=== PATIENT | female | born 1995 | race Caucasian/White ===

== ENCOUNTER → 2019-05-05 11:43 | Observation (INO) ==
[2019-05-05 11:18] LABS: Bilirubin,Urine Negative (Negative); Blood,Urine Negative (Negative); Clarity,Urine Clear (Clear); Color,Urine Yellow (Yellow); Glucose,Urine (UA) Normal (Normal); Ketones,Urine Negative (Negative); Leukocyte Esterase,Urine Negative (Negative); Nitrite,Urine Negative (Negative); PH,Urine 6.5 pH Units (5.0-8.0); Protein,Urine Negative (Neg-Trace); Urobilinogen,Urine Normal (Normal)
[2019-05-05 11:24] LABS: Amphetamine Screen,Urine Negative ng/mL (Cutoff=1000); Barbiturate Screen,Urine Negative ng/mL (Cutoff=200); Benzodiazepines Screen,Urine Negative ng/mL (Cutoff=200); Cannabinoid Screen,Urine Negative ng/mL (Cutoff = 50); Cocaine Screen,Urine Negative ng/mL (Cutoff= 300); Opiate Screen,Urine Negative ng/mL (Cutoff=300); Phencyclidine Screen,Urine Negative ng/mL (Cutoff=25)
== END | disposition home or self-care (01) ==
LOC: 1NENULAB
PROVIDERS: ADMIT Advanced Practice Midwife; ATTEND Advanced Practice Midwife

== ENCOUNTER → 2019-06-15 16:15 | Observation (INO) ==
[2019-06-15 12:05] LABS: Amphetamine Screen,Urine Negative ng/mL (Cutoff=1000); Barbiturate Screen,Urine Negative ng/mL (Cutoff=200); Benzodiazepines Screen,Urine Negative ng/mL (Cutoff=200); Cannabinoid Screen,Urine Negative ng/mL (Cutoff = 50); Cocaine Screen,Urine Negative ng/mL (Cutoff= 300); Opiate Screen,Urine Negative ng/mL (Cutoff=300); Phencyclidine Screen,Urine Negative ng/mL (Cutoff=25)
[~2019-06-15 16:15] MED LIST: FLU Vac QV 19-20 (6Month+)/PF 0.5 ML SYRINGE IM ONE
--- NOTE | 2019-06-15 21:56 | OB/GYN Progress Note ---
Date of Encounter: 06/15/19 Time of Encounter: 21:55 - Assessment and Plan (1) 38 weeks gestation of Status: Acute (2) Uterine contractions Status: Acute No change on serial cervical exams. Patient given multiple hours of ambulation, peanut ball. No change. Discharged home with labor and when to return to triage precautions. Discussed prodromal labor patterns recommend Tylenol PM rest. Patient verbalizes understanding and in agreement with plan Subjective - Subjective Interval history: 38+6 weeks gestation presents to triage with reports of uterine contraction. Patient reports good movement, denies vaginal bleeding or leaking of fluid. Antepartum ROS: movement normal, contractions, no loss of fluid, no vaginal bleeding Objective - Vital Signs Vital Signs: Intake and Output 06/15/19 06/15/19 06/15/19 07:59 15:59 23:59 Other: Weight 90.1 kg Patient Weight 06/15/19 23:59 Weight 90.1 kg - Exam FHR: auscultation normal Abdomen: Present: soft, gravid Cervical dilation: 1 cm per RN
== END | disposition home or self-care (01) ==
LOC: 1NENULAB
PROVIDERS: ADMIT Advanced Practice Midwife; ATTEND Advanced Practice Midwife

== ENCOUNTER 2019-06-15 22:43 | Inpatient (IN) ==
--- NOTE | 2019-06-15 22:41 | OB/GYN History & Physical ---
Date of Encounter: 06/15/19 Time of Encounter: 22:40 Assessment and Plan (1) 38 weeks gestation of Current visit: No Status: Acute Pt presented earlier today with uterine contraction. 38wks +6 days - had increasing pain since leaving, presented with increasing contractions tonight Cervix 4cm, 100% effacement and 1+ station A+ blood type, HIV nonreactive, rubella immune GBS+ PLAN - admit to L&D - plan for NSV - plan for abx during labor, no penicillin allergy in pmhx - plan for epidural insertion (2) Uterine contractions Current visit: No Status: Acute See above. History of Present Illness Chief complaint: contractions HPI: Ms. Maza is a 24 year old female 38+6 weeks gestation presents to triage with reports of uterine contraction. Was here earlier today for labor evaluation and was sent home bc she was only 1cm dilated this morning. Patient reports good movement, denies vaginal bleeding or leaking of fluid. Came back with increasing contractions and pain. No complications during . GBS+, nonreactive HIV, rubella immune. BT A+. Past Med Surg Social Fam HX - Past Medical History Medical history: no medical history Psychiatric history: anxiety, depression - Past Surgical History Additional surgical history: left wrist ganglion cyst removed x 2. right ear. t&a - Social History Smoking Status: Never smoker Smokeless Tobacco Status: No Alcohol use: none Drug use: none - Family History Mother Adopted: No Family Member Ethnicity: Non- Living Status: Still Living Hx Family Cardiac Disorders: No Hx Family Respiratory Disorders: No Hx Family Cancer: Yes (thyroidectomy) Hx Family GI Disorders: No Hx Family Endocrine Disorder: Yes (pre-diabetic) Hx Family Neuromuscular Disorders: No Hx Family Neurologic Disorders: No Hx Family HEENT Disorders: No Hx Family Autoimmune Disorders: No Obstetrical History - Pregnancies : 2 Para: 0 Term: 0 : 0 Ab's: 0 Livin Medications and Allergies Vitamin Tablet 1 tab PO DAILY 10/22/18 [History] Stool Softener 1 tab PO DAILY 10/22/18 [History] Fiber Gummies 1 tab PO DAILY 01/15/19 [History] Allergy/AdvReac Type Severity Reaction Status Date / Time No Known Allergies Allergy Verified 05/05/19 11:07 Review of System OB - Constitutional Constitutional ROS IM: no chills, no headache(s) - Cardiovascular Cardiovascular: no chest pain - Respiratory Respiratory: no dyspnea - Gastrointestinal Gastrointestinal: abdominal pain - Muscloskeletal Musculoskeletal: arthralgias, back pain - Neurological Nerological: no dizziness - Hematologic/Lymphatic Hematologic/Lymphatic: no easy bleeding Exam - Constitutional Constitutional: well developed, well nourished, mild distress - HEENT HEENT: Mucus Membranes Moist - Lungs Respiratory exam: CTAB - Cardiovascular Cardiovascular exam: RRR - Abdomen Abdomen: Present: gravid - Extremities Extremities exam: normal capillary refill, warm - Cervix Dilation: 4 Effacement: 100 Station: +1 Results All other labs normal. - VTE Reasons for not Prescribing Prophylaxis: Treatment not Indicated - Low risk for VTE
[~2019-06-15 22:43] MED LIST changes: +*HR* Nalbuphine 10 MG/ML AMPUL IVP PRN; -FLU Vac QV 19-20 (6Month+)/PF 0.5 ML SYRINGE IM ONE; +Famotidine 20 MG/2 ML VIAL IVP PRN; +Lidocaine 1% 20 ML MDV INFILT PRN; +Metoclopramide 10 MG/2 ML VIAL IVP PRN; +Naloxone 0.4 MG/ML INJ IVP PRN; +Ondansetron 4 MG/2 ML VIAL IVP PRN; +Penicillin G Potassium 5,000,000 UNIT in 0.9 % Sodium Chloride Mini Bag 100 ML IVPB ONE
[2019-06-15] MEDS ORDERED: Ringers Solution, Lactated 1,000 ML IVC SCH (22:45)
[2019-06-15 23:10] LABS: Basophils # 0.1 K/mcL (0.0-0.2); Basophils % 0.2 %; Hematocrit 41.7 % (35.3-44.9); Hemoglobin 14.3 g/dL (11.5-15.4); Immature Granulocytes % 0.9 % (0-4); Lymphocytes % 4.8 %; Mean Corpuscular HGB Conc 34.3 g/dL (31.6-35.5); Mean Corpuscular Hemoglobin 31.4 pg (28.0-33.3); Mean Corpuscular Volume 91.6 fL (83.0-100.0); Mean Platelet Volume 10.4 fL (9.4-12.4); Monocytes # 0.3 K/mcL (0.0-1.3); Monocytes % 1.2 %; Neutrophils # 19.9 K/mcL (1.6-8.9); Platelet Count 290 K/mcL (140-400); Red Blood Count 4.55 M/mcL (3.82-4.97); Segmented Neutrophils % 92.9 %; White Blood Count 21.5 K/mcL (4.3-11.1)
[2019-06-15] MEDS ORDERED: *HR* FentaNYL (PF) 100 MCG/2 ML VIAL ONE (23:19)
[2019-06-15] MEDS ORDERED: Ropivacaine/PF 0.2% 20 ML VIAL ONE (23:19)
[2019-06-15] MEDS ORDERED: EPHEDrine 50 MG/ML VIAL IVP PRN (23:40)
--- NOTE | 2019-06-15 23:43 | Anesthesia Evaluation PreOp ---
Date of Encounter: 06/15/19 Time of Encounter: 23:15 - Past History Planned Operation: frank Cardiac History: Denies any Significant Hx Pulmonary History: Denies Any Significant HX PRODUCTION STAFF WORKER History: Denies Any Significant HX Other Medical History: Denies Any Significant HX Anesthesia History: No Prior Anesthetic Complications, Past Anesthesia : Yes () Alcohol Use: none Drug use: none Medications and Allergies Vitamin Tablet 1 tab PO DAILY 10/22/18 [History] Stool Softener 1 tab PO DAILY 10/22/18 [History] Fiber Gummies 1 tab PO DAILY 01/15/19 [History] Allergy/AdvReac Type Severity Reaction Status Date / Time No Known Allergies Allergy Verified 06/15/19 22:46 - Meds/Allergy Pre-op Review Medications Reviewed: Yes Allergies Reviewed: Yes Beta Blockers on Current Med List: No Anesthesia Results - Labs 06/15/19 22:50 Anesthesia Exam O2 Sat Height 1.73 m Weight 89.811 kg Height: 68 Weight: 198 - HEENT Pupil (Motor): Pupils equal Mallampati: II Teeth: Normal Oral Opening: Greater than 3 - PRODUCTION STAFF WORKER LOC: Oriented PRODUCTION STAFF WORKER Motor: Normal RUE, Normal LUE, Normal RLE, Normal LLE, Normal Face PRODUCTION STAFF WORKER Sensory: Normal: RUE, LUE, RLE, LLE, Face - Cardiac Rhythm: Regular Murmur: None JVD: No Carotid Bruit: No - Pulmonary Breath Sounds: bilateral Clear Respiratory Effort: Symmetrical Anesthesia Assess/Plan ASA Score: 2 Level of consciousness: Cooperative Anesthetic Plan: Epidural Monitoring Plan: Standard Monitors
[2019-06-15] MEDS ORDERED: Epidural Premix (fent/bupiv) 110 ML EP SCH (23:45)
--- NOTE | 2019-06-15 23:45 | Anesthesia Procedures ---
Date of Encounter: 06/15/19 Time of Encounter: 23:15 (procedure end time 3276) Procedures: Anesthesia - Epidural/Spinal Patient ID/Chart reviewed: Yes Patient examined: Yes OB Eval: Contractions: Non-stressed pattern Consent Obtained: Yes Supplemental Oxygen: None/Room Air Site Prep: Aseptic Technique Patient position: upright Local Anesthetic: Lidocaine 1% Amount of Local Anesthetic used: 3 Touhy Needle Gauge: 18 Touhy Needle Depth (cm): 5 Catheter Depth at Skin (cm): 12 Test Dose (1.5% Lido + Epi): Volume given (mls): 3 Test Dose Result: Negative Loading Dose: Fentanyl (mcg): 100 Loading Dose: Other: 6ml 0.2% ropivicaine Loading Dose Administered: Thru Touhy Needle Infusion Med: 0.125% Bupivacaine w/ 2 mcg/ml Fentanyl Infusion Rate (mls/hr): [address]: Tegaderm Interspace Used: L3-L4 Loss of Resistance (ARLETH): Yes Blood: No CSF: No Paresthesia: No Procedure: Strict asepsis ,one attempt without any redirections. Good ARLETH, no parasthesias, no heme, no CSF. FHR unchanged
[2019-06-15] MEDS ORDERED: Epidural Premix (fent/bupiv) 110 ML EP ONE (23:46)
[2019-06-16] MEDS ORDERED: Penicillin G Potassium 2,500,000 UNIT in 0.9 % Sodium Chloride 100 ML IVPB SCH
--- NOTE | 2019-06-16 00:18 | OB Labor Progress Note ---
Date of Encounter: 06/16/19 Time of Encounter: 00:13 Labor Progress Note - Subjective Subjective: The patient is with some relief after her epidural. She still is feeling some contractions on the left side. She is alert he had her water broke with Dr. Decker, clear fluid and he placed internal's due to concerns about the heart rate tracing. - Vital Signs Vital Signs: Afebrile, vital signs stable - Cervix Cervix: 7-8/100/0, vertex - Heart Tones Heart Tones: 140s baseline currently CAT 1. She has had some variable decelerations intermittently - Montgomery Montgomery: Contractions spontaneous every 2-4 minutes - Interventions Interventions: 39 week IUP with spontaneous labor s/p labor epidural. Positive GBS - Plan Plan: Continue close monitoring. Anticipate vaginal delivery. Continue penicillin for GBS prophylaxis
[2019-06-16] MEDS ORDERED: Lidocaine -MPF 2% 5 ML VIAL ONE (00:53)
[2019-06-16] MEDS ORDERED: Oxytocin 20 units/ LR 1000 mL 20 UNIT/1,000 ML BAG IVC ONE ×2 (02:31→05:54)
--- NOTE | 2019-06-16 04:12 | OB/GYN Procedure Note ---
Delivery - Delivery Date: 06/16/19 Provider: Glo Mart Intrapartum events: none Delivery induction: none Delivery augmentation: rupture of membranes Delivery monitor: external FHT, external uterine, internal FHT, internal uterine Anesthesia: epidural Quantitated Blood Loss: 50 - (s) A Infant Delivery Date: 06/16/19 Delivery Time: 03:39 Presentation: vertex Position: ANGELIKA Route of delivery: Gender: Male Viability: Viable at 1 minute: 8 at 5 mins: 9 Shoulder Dystocia: not encountered Placenta: spontaneous Cord: nuchal cord, 3 umbilical vessels, delivered through nuchal - Repair Episiotomy: none Laceration Description: Periurethral (Bilateral repaired with 4-0 Monocryl), Vaginal (Repaired with 3-0 Monocryl in a running locking fashion approximately 2 cm in length) - Complications Delivery complications: none Delivery comments: The patient was complete and pushing with epidural anesthesia with a spontaneous vaginal delivery in the ANGELIKA position of a vigorous male , weight pending at time of dictation, with Apgars of _8 at 1 minute and _9 at 5 minutes. was placed on the maternal abdomen and care transferred to the nursery care team. The cord was clamped and cut after pulsations ceased. The placenta was delivered spontaneous and intact. Three-vessel cord confirmed. There are bilateral periurethral lacerations which were repaired with 4-0 Monocryl in a running locking fashion. There was a vaginal laceration at 5 o'clock position and a partially 2 cm in length that was repaired with 3-0 Monocryl in a running locking fashion. Estimated blood loss _50_ mL, complications none. Both mother and infant were recovering in stable condition in the LDR - Disposition Mom disposition: stable in LDR disposition: stable in LDR
[2019-06-16] MEDS ORDERED: Lanolin 28 GM TUBE TP PRN (06:54)
[2019-06-16] MEDS ORDERED: Benzocaine/Menthol 56 GM AEROSOL SPRAY TP PRN (06:54)
[2019-06-16] MEDS ORDERED: Oxytocin 20 units/ LR 1000 mL 20 UNIT/1,000 ML BAG IVC SCH (06:54)
[2019-06-16] MEDS ORDERED: Acetaminophen 325 MG TABLET PO PRN (06:54)
[2019-06-16] MEDS: Ibuprofen 600 MG TABLET PO PRN ×3 (08:06→20:53)
[2019-06-16] MEDS ORDERED: Prenatal Vit/FA 1 EACH TABLET PO SCH (09:00)
[2019-06-17] MEDS: Ibuprofen 600 MG TABLET PO PRN (04:26)
[2019-06-17 07:47] VITALS: BP 106/71
--- NOTE | 2019-06-17 09:09 | Discharge Summary ---
Date of Encounter: 06/17/19 Time of Encounter: 09:07 - Discharge Diagnosis (1) Vaginal delivery Priority: Primary Status: Acute Comments: Feeling well Tolerating regular diet Pain well-controlled with by mouth pain meds Ambulating independently Voiding independently Lochia light Passing flatus, no BM yet Vital signs stable Discharge home today (2) Breast feeding status of mother Priority: Secondary Status: Acute Comments: Community resources provided - Discharge Medications Prescriptions: New Acetaminophen [Tylenol] 650 mg PO Q6HR PRN tablet PRN Reason: Mild Pain Ibuprofen [Motrin] 600 mg PO Q6HR PRN #30 tablet PRN Reason: Cramping Benzocaine/Menthol Newman [Dermoplast Newman] 1 appl TP QID PRN aerosol PRN Reason: See Comments Docusate [Colace] 100 mg PO BID #30 capsule Lanolin 1 appl TP Q4HR PRN tube PRN Reason: Continued Stool Softener 1 tab PO DAILY Vitamin Tablet 1 tab PO DAILY Fiber Gummies 1 tab PO DAILY Home Medications: Vitamin Tablet 1 tab PO DAILY 10/22/18 [History] Stool Softener 1 tab PO DAILY 10/22/18 [History] Fiber Gummies 1 tab PO DAILY 01/15/19 [History] Acetaminophen [Tylenol] 650 mg PO Q6HR PRN tablet 06/17/19 [Rx] Benzocaine/Menthol Newman [Dermoplast Newman] 1 appl TP QID PRN aerosol 06/17/19 [Rx] Docusate [Colace] 100 mg PO BID #30 capsule 06/17/19 [Rx] Ibuprofen [Motrin] 600 mg PO Q6HR PRN #30 tablet 06/17/19 [Rx] Lanolin 1 appl TP Q4HR PRN tube 06/17/19 [Rx] Allergies/Adverse Reactions: Allergy/AdvReac Type Severity Reaction Status Date / Time No Known Allergies Allergy Verified 06/15/19 22:46 Data Procedures and tests throughout hospitalization: Laboratory Tests 06/15/19 22:50 WBC 21.5 H RBC 4.55 Hgb 14.3 Hct 41.7 MCV 91.6 MCH 31.4 MCHC 34.3 RDW 13.0 Plt Count 290 MPV 10.4 Immature Gran % 0.9 Seg Neutrophils % 92.9 Lymphocytes % 4.8 Monocytes % 1.2 Eosinophils % 0.0 Basophils % 0.2 Neutrophils # 19.9 H Lymphocytes # 1.0 Monocytes # 0.3 Eosinophils # 0.0 Basophils # 0.1 Date of admission: 06/15/19 22:43 Consults: 06/15/19 22:42 Consult to Tower Observer (W&C) [CONS] Stat Reason For Exam: Reason for SW Consult: history of self harm, history of marijuana use in . 06/16/19 06:54 Consult to Circuit Designer [CONS] Routine Comment: Vaginal delivery, consult needed Discharging clinician: Alyssa Reed Anticipated date of discharge: 06/17/19 - Patient Status Disposition: Home, Self-Care Condition: Good Functional capacity at discharge: independent ambulation Overall status at discharge: patient is progressing back to baseline - Discharge Instructions Follow Up With: Glo Mart MD [Partnered Physician] - - Diet and Activity Activity: increase activity as tolerated Diet: regular diet Hospital Course Reason for admission: active labor, IUP at term Delivery: Episiotomy: none Laceration: vaginal side wall Other procedures: none complications: none Discharge diagnosis: IUP at term delivered [place] baby: male Time Attestation: Total time spent providing and/or coordinating discharge services: Time Spent: Less than 30 minutes Exam - Constitutional Vitals: Temp Pulse Resp BP Pulse Ox 98.2 F 97 18 106/71 98 06/17/19 07:46 06/17/19 07:46 06/17/19 07:46 06/17/19 07:46 06/17/19 07:46 General appearance IM: A&O X 3, pleasant, no acute distress, answers questions appropriately - Respiratory Respiratory exam: Present: CTAB - Cardiovascular Cardiovascular exam IM: Present: RRR - GI/Abdominal GI/Abdominal exam IM: normal bowel sounds, no peritoneal signs - Rectal Rectal exam: deferred - Uterine Tone: Firm Uterus Position: 2 Fingers Below Umbilicus, Midline - Extremities Exam Extremities exam IM: Present: full ROM, normal capillary refill, normal inspection, radial pulses palpable and symmetrical - Neurological Exam Neurological exam: alert, oriented X3, strengths equal and symetr throughout - Psychiatric Additional comments: Patient reports history of anxiety. Signs and symptoms of depression and anxiety reviewed with patient and partner and both verbalized understanding of when to seek help
[2019-06-17] MEDS ORDERED: FLU Vac QV 19-20 (6Month+)/PF 0.5 ML SYRINGE IM ONE (09:58)
[2019-06-17 10:52] LABS: Basophils % 0.4 %; Eosinophils # 0.1 K/mcL (0.0-0.6); Eosinophils % 0.7 %; Hematocrit 31.7 % (35.3-44.9); Hemoglobin 10.8 g/dL (11.5-15.4); Immature Granulocytes % 0.6 % (0-4); Lymphocytes # 1.8 K/mcL (0.6-4.6); Lymphocytes % 17.7 %; Mean Corpuscular HGB Conc 34.1 g/dL (31.6-35.5); Mean Corpuscular Hemoglobin 32.6 pg (28.0-33.3); Mean Corpuscular Volume 95.8 fL (83.0-100.0); Monocytes # 0.6 K/mcL (0.0-1.3); Monocytes % 5.8 %; Neutrophils # 7.4 K/mcL (1.6-8.9); Platelet Count 169 K/mcL (140-400); Red Blood Count 3.31 M/mcL (3.82-4.97); Red Cell Distribution Width 13.3 % (11.5-14.5); Segmented Neutrophils % 74.8 %; White Blood Count 9.9 K/mcL (4.3-11.1)
== END 2019-06-17 12:00 | disposition home or self-care (01) | DRG 807 ==
LOC: 1NENULAB → 1NENUOBS 06-16 06:54
PROVIDERS: ADMIT Advanced Practice Midwife; ATTEND Advanced Practice Midwife

== ENCOUNTER → 2021-08-22 14:33 | Observation (INO) ==
[~2021-08-22 14:33] MED LIST changes: -*HR* Nalbuphine 10 MG/ML AMPUL IVP PRN; -Famotidine 20 MG/2 ML VIAL IVP PRN; -Lidocaine 1% 20 ML MDV INFILT PRN; -Metoclopramide 10 MG/2 ML VIAL IVP PRN; -Naloxone 0.4 MG/ML INJ IVP PRN; -Ondansetron 4 MG/2 ML VIAL IVP PRN; -Penicillin G Potassium 5,000,000 UNIT in 0.9 % Sodium Chloride Mini Bag 100 ML IVPB ONE; +Ringers Solution, Lactated 1,000 ML ONE
== END | disposition home or self-care (01) ==
LOC: 1NENULAB
PROVIDERS: ADMIT Obstetrics & Gynecology; ATTEND Obstetrics & Gynecology

== ENCOUNTER 2021-09-03 06:00 | Inpatient (IN) ==
[2021-09-03] MEDS ORDERED: Famotidine 20 MG/2 ML VIAL IVP PRN (06:21)
[2021-09-03] MEDS ORDERED: *HR* Nalbuphine 10 MG/ML AMPUL IV PRN (06:21)
[2021-09-03] MEDS ORDERED: Metoclopramide 10 MG/2 ML VIAL IVP PRN (06:21)
[2021-09-03] MEDS ORDERED: Naloxone 0.4 MG/ML INJ IVP PRN (06:21)
[2021-09-03] MEDS ORDERED: Lidocaine 1% 20 ML MDV INFILT PRN (06:21)
[2021-09-03] MEDS ORDERED: Azithromycin 500 MG in 0.9 % Sodium Chloride 250 ML IVPB PRN (06:21)
[2021-09-03] MEDS ORDERED: Ondansetron 4 MG/2 ML VIAL IVP PRN (06:21)
[2021-09-03] MEDS ORDERED: miSOPROStoL 25 MCG TABLET PO PRN (06:27)
[2021-09-03] MEDS ORDERED: Oxytocin 20 units/ LR 1000 mL 20 UNIT/1,000 ML BAG IVC SCH ×2 (06:30→16:50)
[2021-09-03] MEDS ORDERED: Ringers Solution, Lactated 1,000 ML IVC SCH (06:30)
[2021-09-03 07:55] LABS: Basophils % 0.4 %; Eosinophils # 0.1 K/mcL (0.0-0.6); Eosinophils % 0.8 %; Hematocrit 38.8 % (35.3-44.9); Hemoglobin 12.8 g/dL (11.5-15.4); Immature Granulocytes % 0.7 % (0-4); Lymphocytes # 1.8 K/mcL (0.6-4.6); Lymphocytes % 18.2 %; Mean Corpuscular Volume 93.9 fL (83.0-100.0); Monocytes # 0.6 K/mcL (0.0-1.3); Monocytes % 6.5 %; Neutrophils # 7.2 K/mcL (1.6-8.9); Platelet Count 181 K/mcL (140-400); Red Blood Count 4.13 M/mcL (3.82-4.97); Red Cell Distribution Width 13.2 % (11.5-14.5); Segmented Neutrophils % 73.4 %; White Blood Count 9.8 K/mcL (4.3-11.1)
[2021-09-03] MEDS ORDERED: EPHEDrine 50 MG/ML VIAL IVP PRN (08:25)
[2021-09-03 08:26] LABS: Influenza A PCR Negative (Negative); Influenza B PCR Negative (Negative); Resp. Syncytial Virus PCR Negative (Negative); SARS-CoV-2 by PCR (In House) Negative (Negative)
[2021-09-03] MEDS ORDERED: Epidural Premix (fent/bupiv) 110 ML EP SCH (08:30)
[2021-09-03 09:46] LABS: Amphetamine Screen,Urine Negative ng/mL (Cutoff=1000); Barbiturate Screen,Urine Negative ng/mL (Cutoff=200); Benzodiazepines Screen,Urine Negative ng/mL (Cutoff=200); Cannabinoid Screen,Urine Negative ng/mL (Cutoff = 50); Cocaine Screen,Urine Negative ng/mL (Cutoff= 300); Opiate Screen,Urine Negative ng/mL (Cutoff=300); Phencyclidine Screen,Urine Negative ng/mL (Cutoff=25)
[2021-09-03] MEDS ORDERED: Lanolin 7 G OINT...G. TP PRN (16:50)
[2021-09-03] MEDS ORDERED: Ondansetron ODT 4 MG TAB.RAPDIS SL PRN (16:50)
[2021-09-03] MEDS ORDERED: Benzocaine/Menthol 56 GM AEROSOL SPRAY TP PRN (16:50)
[2021-09-03] MEDS: Acetaminophen 325 MG TABLET PO SCH (17:38)
[2021-09-03] MEDS: Ibuprofen 600 MG TABLET PO SCH (21:09)
[2021-09-04] MEDS: Acetaminophen 325 MG TABLET PO SCH ×2 (03:01→09:20)
[2021-09-04] MEDS: Ibuprofen 600 MG TABLET PO SCH ×2 (03:01→09:21)
[2021-09-04 03:38] LABS: Basophils # 0.1 K/mcL (0.0-0.2); Basophils % 0.4 %; Eosinophils # 0.1 K/mcL (0.0-0.6); Eosinophils % 0.9 %; Hematocrit 34.4 % (35.3-44.9); Hemoglobin 11.8 g/dL (11.5-15.4); Immature Granulocytes % 0.5 % (0-4); Lymphocytes # 2.3 K/mcL (0.6-4.6); Lymphocytes % 19.5 %; Mean Corpuscular HGB Conc 34.3 g/dL (31.6-35.5); Mean Corpuscular Hemoglobin 32.1 pg (28.0-33.3); Mean Corpuscular Volume 93.5 fL (83.0-100.0); Mean Platelet Volume 11.4 fL (9.4-12.4); Monocytes # 0.7 K/mcL (0.0-1.3); Monocytes % 5.9 %; Neutrophils # 8.5 K/mcL (1.6-8.9); Platelet Count 142 K/mcL (140-400); Red Blood Count 3.68 M/mcL (3.82-4.97); Red Cell Distribution Width 13.1 % (11.5-14.5); Segmented Neutrophils % 72.8 %; White Blood Count 11.7 K/mcL (4.3-11.1)
[2021-09-04 08:47] VITALS: BP 104/64; PULSE 79; TEMP 98; O2SAT 99
[2021-09-04] MEDS ORDERED: Prenatal Vit/FA 1 EACH TABLET PO SCH (09:00)
== END 2021-09-04 15:30 | disposition home or self-care (01) | DRG 806 ==
LOC: 1NENULAB 06:03 → 1NENUOBS 16:44
PROVIDERS: ADMIT Obstetrics & Gynecology; ATTEND Obstetrics & Gynecology